=== PATIENT | male | born 1950 | race Two or more races ===

== ENCOUNTER 2023-12-03 10:57 | Emergency (ER) | payer OTHER ==
[~2023-12-03] VITALS: Ht 170.2 cm; Wt 87.5 kg
[2023-12-03] MEDS ORDERED: ATORVASTATIN CA40 MG PO (11:31)
[2023-12-03] MEDS ORDERED: FAMOTIDINE40 MG PO (11:31)
[2023-12-03] MEDS ORDERED: DOXAZOSIN MESYLA2 MG PO (11:31)
[2023-12-03] MEDS ORDERED: SYNTHROID75 MCG PO (11:32)
[2023-12-03] MEDS ORDERED: MONTELUKAST SOD10 MG PO (11:32)
[2023-12-03] MEDS ORDERED: METOPROLOL TART50 MG PO (11:32)
[2023-12-03] MEDS ORDERED: METHYLPREDNISOLO4 M1 PO (11:32)
[2023-12-03] MEDS ORDERED: FENOFIBRATE160 MG PO (11:32)
[2023-12-03] MEDS ORDERED: IRBESARTAN150 MG PO (11:32)
[2023-12-03] MEDS ORDERED: HYDROCHLOROTHIA25 MG PO (11:32)
[2023-12-03] MEDS ORDERED: ADULT LOW DOSE81 M1 PO (11:33)
[2023-12-03] MEDS ORDERED: ACETAMINOPHEN 500 MG GEL..CAP PO ONE (12:45)
[2023-12-03 13:45] LABS: HEMATOCRIT 38.6 % (39.0-48.0); MEAN CELL VOLUME 82.9 fL (80.0-100.00); MEAN CORPUSCULAR HEMOGLOBIN 27.9 pg (27.00-32.0); MEAN CORPUSCULAR HGB CONC 33.7 g/dl (32.0-36.0); RED BLOOD COUNT 4.65 M/uL (4.00-6.00)
[2023-12-03 13:52] LABS: PLATELET COUNT 114 K/uL (150-450)
[2023-12-03 14:10] LABS: CALCIUM 9.8 mg/dL (8.5-10.1); CREATININE SERUM 1.12 mg/dL (0.70-1.30); GFR 64.45; POTASSIUM 3.31 mEq/L (3.5-5.1)
[2023-12-03 15:33] LABS: URINE APPEARANCE Clear; URINE BILIRRUBIN Large (NEGATIVE); URINE BLOOD Trace; URINE COLOR Orange; URINE GLUCOSE Negative (NEGATIVE); URINE LEUKOCYTE Small; URINE NITRATE Positive; URINE PROTEIN 30 (NEGATIVE)
[2023-12-03 15:34] LABS: URINE BACTERIA 75.5 uL (0.0-1933); URINE EPITHELIAL CELLS 15.6 uL (0.0-38.8); URINE RBC 176.3 uL (0.0-20.8); URINE WBC 3.2 uL (0.0-23.2)
[2023-12-03 16:06] LABS: URINE CRYSTALS FEW /HPF; URINE MUCUS MODERATE
[2023-12-03] MEDS ORDERED: BACTRIM DS TAB1 EACH PO (16:25)
== END 2023-12-03 16:36 | disposition home or self-care (01) ==
LOC: ER 10:58
PROVIDERS: Nurse Practitioner Family
DX: N39.0 Urinary tract infection, site not specified (principal); R50.9 Fever, unspecified; Z20.822 Contact with and (suspected) exposure to COVID-19; I10 Essential (primary) hypertension; E03.8 Other specified hypothyroidism; Z88.0 Allergy status to penicillin